=== PATIENT | female | born 1960 | race Caucasian/White ===

== ENCOUNTER 2021-11-05 11:41 | Outpatient (CLI) | payer MEDICARE, SELFPAY ==
[2021-11-09 12:01] LABS: QNTFERON TB Mitogen Value > 10.00 IU/mL (.); QNTFERON TB Nil Value 0.04 IU/mL (.); QNTFERON TB1+ Ag Value 0.03 IU/mL (.); QNTFERON TB2+ Ag Value 0.03 IU/mL (.)
[2021-11-09 12:15] LABS: QNTIFERON TB Positive Criteria Negative (Negative)
== END 2021-11-05 23:59 | disposition home or self-care (01) ==
LOC: MTLAB 11:46
PROVIDERS: PCP Family Medicine; Referring Provider Internal Medicine Rheumatology; Visit Provider Internal Medicine Rheumatology
DX: M06.09 Rheumatoid arthritis without rheumatoid factor, multiple sites (principal); M79.7 Fibromyalgia; M17.0 Bilateral primary osteoarthritis of knee; M16.0 Bilateral primary osteoarthritis of hip; M21.40 Flat foot [pes planus] (acquired), unspecified foot; G47.33 Obstructive sleep apnea (adult) (pediatric); Z79.899 Other long term (current) drug therapy
CPT/HCPCS: 36415; 86480

== ENCOUNTER → 2022-04-20 | Outpatient (CLI) | payer MEDICARE, SELFPAY ==
[2022-04-22 14:09] LABS: Red Blood Cell Count Test/G6PD 4.48 x10E6/uL (3.77-5.28)
[2022-04-22 15:14] LABS: G6PD Quant Test 361 (127-427)
== END | disposition home or self-care (01) ==
LOC: MTLAB 10:03
PROVIDERS: PCP Family Medicine; Referring Provider Internal Medicine Rheumatology; Visit Provider Internal Medicine Rheumatology
DX: M06.09 Rheumatoid arthritis without rheumatoid factor, multiple sites (principal); Z79.899 Other long term (current) drug therapy
CPT/HCPCS: 36415; 82955

== ENCOUNTER 2024-10-02 10:00 | Outpatient (RCR) | payer MEDICARE, SELFPAY ==
--- NOTE | 2024-05-15 10:11 | HP.OTEVAL_ITS ---
Patient's Visit Information Visit Information Visit Information: TIFFANIE ODONNELL is a 63 year old F, referred to Occupational Therapy by WILLIAM FAULKNER, with a diagnosis of LE lymphedema. Date of Evaluation: 05/14/24 Occupational Therapist: Kayla Al, KYRA/[place]ad, CHT Subjective Subjective: This 63 year old female was seen for OT eval with dx of LE Lymphedema, Venous insufficiency, Obstructive sleep apnea and recent PE in January. pt states she thinks her legs started swelling in November 2023. Pt states she has had lymph fluid leaking. pt states does have compression socks but they do hurt her ankles - she got them stuck on her legs and her sister came over to remove the socks- PT states her dtr will come and wrap her legs with jigna wraps as she can not reach her feet. pt states she would like to get the velcro closure compression garments but she was told her insurance would not cover them. pt is on cpap at night with 2 liters of O2. pt if walking she is to be on 4 liters O2. Can walk short distances but longer distances O2. pt states she sleeps in recliner so she can be on her cpap pt states she lost her and since she had a PE she realizes she needs to take care of herself. pt states she has lost 28LBs and feels she is looking into sx to assist with her wt. loss. feels she would benefit from Velcro compression garments and lymphedema pumps. Lymphedema (Circumferential Measure) Mid-foot: right 27 cm left 27cm Ankle: right 32cm left 35cm Lower calf: right 40cm left 46 cm Largest calf: [id number] left 61 cm Below knee: right 45cm left 45cm Lower Exremity Comments: pt demo with fibrotic skin and seeping areas on bilateral LE Lower Limb Functional Index Lower Extremity Functional Score: 10 Goals Goal: Patient will demonstrate a 20% reduction in edema by discharge: Yes Goal: Patient will demonstrate adequate knowledge of self-bandaging by the end of the first week.: Yes Goal: Patient will demonstrate adequate knowledge of self-massage by the end of the second week.: Yes Goal: Patient will demonstrate adequate knowledge of skin care and precautions by the end of the first week.: Yes Goal: Patient will demonstrate adequate knowledge of therapeutic exercises by discharge.: Yes Goal: Patient will select an appropriate compression garment and demonstrate adequate knowledge of correct donning technique, care and wearing schedule by discharge.: Yes Goal: Patient will voice understanding of need to replace compression garment every four to six months by discharge.: Yes Rehabilitation General Assessment: pt demo with stage III lymphedema and in need of skilled OT services 4-6 visits to ensure pt has ed. and compression garments to be successful with her lymphedema mtg. as she would like to have bariatric sx to assist with her wt. loss. Today pt demo limited tolerance of ambulation through the dpt. demo with SOB. pt does admit she should haver her O2 on for longer distances. Pt states she will bring with her next time. Pt demo with weeping areas on bilateral LE and firmness. Pt would benefit from skilled OT services 3- 4 visits to ed. pt on dx., beneficial ex. and will work with pt on getting the velcro closure compression garments- ( pt ed. pt on [employer] web site to review medical grade compression garments ie Medi, Juzo, Jobst, Sigvaris) Advise pt to read information and cost as she was told her insurance would not cover them. Therapist did wrap pt with surepress compression wraps prior to her leaving- advised to cont. having her dtr wrap her legs until she can get the velcro closure compression garments. pt demo understanding and agree to POC. Rehabilitation Potential: Good Anticipated Interventions Anticipated Interventions: Education re Diagnosis, Education re Life-long lymphedema Management, Education re Self-Bandaging Techniques, Education re Skin Care and Precautions, Education re Self Massage Techniques, Education re Correct Donning Tech,Care&Wearing Sched Comp Garments, Caregiver Training and Home Program Visit Plan Frequency: Every Other Week Duration: 6 Weeks TEXT: Thank you for the opportunity to evaluate your patient. For Medicare and Medicare HMO plans, please review the plan of care and approve it. It will need to be FAXED BACK to us at [phone] for Medicare purposes. Please let me know if there are questions or concerns regarding this plan of c are. Physician Signature: Date:
--- NOTE | 2024-07-04 14:51 | HP.OTREVAL ---
Re-Evaluation Intro: WILLIAM FAULKNER, It has been my pleasure to treat TIFFANIE ODONNELL over the last 2 visits for LE lymphedema. Please see the progress note below for an update on the occupational therapy plan of care! Subjective Subjective: pt arrives states she has been doing her best with wrapping bilateral LE. States family does wrap them however they do become painful and she will remove them. pt states she is doing exercise to improver her circulation and feels she has made gains but would like to move forward on use of compression pump for home. Objective Objective/Function: Mid-foot: right 27 cm left 27cm same from eval Ankle: right 32cm left 35cm current right 32cm left 31cm Lower calf: right 40cm current 34cm left 46 cm current 35cm Largest calf: [id number] current 52cm left current 51cm inital was 61 cm Below knee: right 45cm left 45cm same as eval Lower Extremity Comments: pt demo with fibrotic skin and seeping area has resolved. pt states she continues to have family come over and wrap her legs and she would like to know what more she can do to help herself mtg. her bilateral LE swelling. Plan Plan Frequency: Every Other Week Duration: 6 Weeks Visits in this POC: 4-6 visits Plan: Pt has worked with conservative treatment of bilateral LE lymphedema- elevation, wrapping, lymph stimulation exercise with minimal results. pt would benefit from home vaso compression pump for pt to continue to mtg her LE edema as conservative methods have not be completely successful. therapist will send paper work to supplier to initiate pt receiving compression pump for home use. Goals Goals Goal: Patient will demonstrate a 20% reduction in edema by discharge: Yes Goal: Patient will demonstrate adequate knowledge of self-bandaging by the end of the first week.: Yes Goal: Patient will demonstrate adequate knowledge of self-massage by the end of the second week.: Yes Goal: Patient will demonstrate adequate knowledge of skin care and precautions by the end of the first week.: Yes Goal: Patient will demonstrate adequate knowledge of therapeutic exercises by discharge.: Yes Goal: Patient will select an appropriate compression garment and demonstrate adequate knowledge of correct donning technique, care and wearing schedule by discharge.: Yes Goal: Patient will voice understanding of need to replace compression garment every four to six months by discharge.: Yes Patient Goals: Learn how to Manage Lymphedema and Learn how to Apply Compression Stockings Anticipated Interventions Anticipated Interventions Anticipated Interventions: Education re Diagnosis, Education re Life-long lymphedema Management, Education re Self-Bandaging Techniques, Education re Skin Care and Precautions, Education re Self Massage Techniques, Education re Correct Donning Tech,Care&Wearing Sched Comp Garments, Caregiver Training and Home Program Re-Evaluation Ending Re-evaluation ending: Please do not hesitate to contact me at [phone] by phone or if you have questions or concerns regarding this new plan of care! Sincerely, Kayla Al, OTR/L, CHT
--- NOTE | 2024-10-02 10:27 | HP.OTDCSUM ---
Discharge Summary D/C Summary: It has been my pleasure to treat TIFFANIE ODONNELL under orders from WILLIAM FAULKNER, for the diagnosis of LE lymphedema for a total of 3 visit(s). Please see the following information for a summary of their discharge status. Overall Improvement % Improvement: 90 Objective Objective/Function: Mid-foot: right 26 cm left 25.5cm Ankle: right 28cm left 31cm Lower calf: right 40cm left 38cm Largest calf: right 50cm left current 52cm Below knee: right 4cm left 44cm Lower Extremity Comments: pt demo with fibrotic skin and seeping area has resolved. pt states she continues to have family come over and wrap her legs and she would like to know what more she can do to help herself mtg. her bilateral LE swelling. Goals Patient Goals: Learn how to Manage Lymphedema and Learn how to Apply Compression Stockings Goal: Patient will demonstrate a 20% reduction in edema by discharge: Yes Goal Progress: Goal Met Goal: Patient will demonstrate adequate knowledge of self-bandaging by the end of the first week.: Yes Goal Progress: Goal Met Goal: Patient will demonstrate adequate knowledge of self-massage by the end of the second week.: Yes Goal Progress: Goal Met Goal: Patient will demonstrate adequate knowledge of skin care and precautions by the end of the first week.: Yes Goal Progress: Goal Met Goal: Patient will demonstrate adequate knowledge of therapeutic exercises by discharge.: Yes Goal Progress: Goal Met Goal: Patient will select an appropriate compression garment and demonstrate adequate knowledge of correct donning technique, care and wearing schedule by discharge.: Yes Goal Progress: Goal Met Goal: Patient will voice understanding of need to replace compression garment every four to six months by discharge.: Yes Goal Progress: Goal Met Plan Plan: pt to cont with her POC pump/wrapping and compression socks D/C Information Discharge Comments: pt arrives to session after receiving her medical pneumatic pump and has made gains decreased her limb size and has meet goals. Pt d/c at this time. d/c sentence: If there are questions or concerns regarding this patient's occupational therapy, please fell free to call me at [phone]. Thank you for the referral of this patient. Sincerely, Kayla Al, OTR/L, CHT
== END 2024-10-02 19:00 | disposition home or self-care (01) ==
LOC: OT 10:00
PROVIDERS: PCP Family Medicine
DX: I89.0 Lymphedema, not elsewhere classified (principal)
CPT/HCPCS: 97166; 97530